=== PATIENT | female | born 2000 | race Caucasian/White ===

== ENCOUNTER 2024-02-05 17:04 | Emergency (ER) | payer OTHER, SELFPAY ==
[2024-02-05 17:20] VITALS: BP 177/91; PULSE 98; RESP 20; TEMP 37.2; O2SAT 97; BMI 72.8
--- NOTE | 2024-02-05 17:54 | XRR_ITS ---
PROCEDURE INFORMATION: Exam: XR Chest Exam date and time: 02/05/2024 6:58 PM Age: 23 years old Clinical indication: Dyspnea; Patient HX: Multiple complaints, possibly fever x 2 days, ble 3+ pitting edema, reports HX of chf but has not seen a physician for this recently. Nausea/vomiting x 4 days, vomiting 5-10 times per day. 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 Also reports cough with chest congestion TECHNIQUE: Imaging protocol: Radiologic exam of the chest. Views: 1 view. COMPARISON: No relevant prior studies available. FINDINGS: Lungs: Unremarkable. No consolidation. Pleural spaces: Unremarkable. No pleural effusion. No pneumothorax. Heart/Mediastinum: Unremarkable. No cardiomegaly. Bones/joints: Unremarkable. XR/XR chest 1V portable [id number] IMPRESSION: No acute radiographic findings.
--- NOTE | 2024-02-05 17:56 | ED_ITS ---
Documented by User: Didier Maya DO 02/06/24 05:58 HPI - General Adult 2 General: Chief complaint: Nausea/Vomiting/Diarrhea Stated complaint: Both leg swollen, n/v/d Time Seen by Provider: 02/05/24 17:26 Source: patient Mode of arrival: ambulatory History of Present Illness: 23-year-old super morbidly obese female presents emergency room complaining of swelling in her legs she is diabetic she ran out of her insulin about 2 weeks ago. She has noticed polyuria and polydipsia. Additionally she has noticed significant swelling in her legs she tells me she has a history of heart failure which she does not know the etiology for a time she was on diuretics which she stopped taking them because she said they made her incontinent. She also thinks that she may be . Onset (ago): minute(s) Associated symptoms: Reports dyspnea and malaise; Deny chest pain, confusion, cough, diaphoresis, decreased appetite, fevers/chills, headache(s), nausea, rash, palpitations, seizures, short of breath, syncope, vomiting or weakness Treatments prior to arrival: none Review of Systems 2 Const: Reports: fatigue and malaise; Denies: fever(s), chills or diaphoresis Card: Reports: edema, swelling of feet/ankles, dyspnea on exertion and orthopnea; Denies: chest pain, palpitations or syncope Resp: Reports: dyspnea GI: Denies: abdominal pain, nausea, vomiting or hematemesis : Reports: urinary frequency and urinary urgency; Denies: dysuria Musc: Denies: neck pain or back pain Skin/Breast: Denies: rash or pruritus Neuro: Denies: headache(s) or confusion [facility] ED 2 Female Reproductive History: Date of last menstrual period: 12/30/23 Physical Exam 2 Const: GENERAL APPEARANCE: cooperative and comfortable O RIENTATION/CONSCIOUSNESS: Yes awake, Yes oriented to person, Yes oriented to place and Yes oriented to time HENMT: COMMON NORMALS: normocephalic, atraumatic and hearing grossly normal bilaterally HEAD & SCALP: normocephalic and atraumatic Resp: COMMON NORMALS: normal respiratory effort, No retractions and No use of accessory muscles AUSCULTATION: diminished lung sounds Cardio: COMMON NORMALS: regular rate, regular rhythm and No murmurs present (Cardio) RATE: regular rate RHYTHM: regular rhythm Extremity: COMMON NORMALS: normal to inspection and capillary refill normal GENERAL: Yes calf tenderness and Yes edema Neuro: SENSORIUM/ORIENTATION: Yes oriented to person, Yes oriented to place and Yes oriented to time Skin: COMMON NORMALS: no rashes or lesions noted GENERAL SKIN EXAM: no rashes or lesions noted Course 2 Vital Signs: Vital signs: Vital Signs Temperature 98.9 F 02/05/24 17:20 Pulse Rate 101 H 02/05/24 20:30 Respiratory Rate 18 02/05/24 20:30 Blood Pressure 179/91 02/05/24 20:30 Pulse Oximetry 86 L 02/05/24 20:30 Oxygen Delivery Me thod Room Air 02/05/24 18:11 MDM - General Adult Medical Decision Making Patient has been out of insulin last several weeks significant edema. Concerned she may be in congestive heart failure she relates she has had heart failure in the past. Also concern for early DKA or hyperosmolar nonketotic state. Did not initially give her Lasix wanted to see some of her lab work back to make sure she was not in DKA first. Patient has been riding in a semitruck with her significant other who is a dry commercial appraiser. Also concerned about possibility of DVT labs and imaging ordered. Care signed out to Dr. Romero at change of shift. See final notes for diagnosis and disposition. Patient transferred over shift change, always waiting for the second troponin to come back patient decided she was ready to leave. Patient left AMA. Lab Data 02/05/24 18:10 02/05/24 18:10 Radiology Impressions Chest X-Ray 02/05/24 17:54 IMPRESSION: No acute radiographic findings. Venous Duplex 02/05/24 18:02 IMPRESSION: No sonographic evidence of deep venous thrombosis. Laboratory Results WBC 10.77 10^3/uL (3.29-11.43) 02/05/24 18:10 RBC 3.98 10^6/uL (3.85-5.65) 02/05/24 18:10 Hgb 11.40 g/dL (11.27-16.99) 02/05/24 18:10 Hct 37.5 % (36-47) 02/05/24 18:10 MCV 94.2 fl (85-98) 02/05/24 18:10 MCH 28.6 pg (27-33) 02/05/24 18:10 MCHC 30.4 g/dL (30-55) 02/05/24 18:10 RDW 15.1 % (12.1-15.1) 02/05/24 18:10 Plt Count 217 10^3/cmm (157-399) 02/05/24 18:10 MPV 10.7 fL (7.4-10.4) H 02/05/24 18:10 Neut % (Auto) 67.5 % 02/05/24 18:10 Lymph % (Auto) 23.1 % 02/05/24 18:10 Russell % (Auto) 6.4 % 02/05/24 18:10 Eos % (Auto) 2.0 % 02/05/24 18:10 Baso % (Auto) 0.5 % 02/05/24 18:10 Neut # (Auto) 7.27 10^3/uL (1.8-7.7) 02/05/24 18:10 Lymph # (Auto) 2.5 10^3/uL (0.8-4.8) 02/05/24 18:10 Russell # (Auto) 0.7 10^3/uL (0.2-0.9) 02/05/24 18:10 Eos # (Auto) 0.2 10^3/uL (0.0-0.8) 02/05/24 18:10 Baso # (Auto) 0.1 10^3/uL (0.0-0.1) 02/05/24 18:10 Nucleated RBC % (auto) 0 % 02/05/24 18:10 Nucleated RBCs # 0.0 /100WBC 02/05/24 18:10 Specimen Type Arterial 02/05/24 17:56 Sample Site Radial, right 02/05/24 17:56 ABG pH 7.43 (7.35-7.45) 02/05/24 17:56 ABG pCO2 45.6 mmHg (35-45) H 02/05/24 17:56 ABG pO2 81.2 mmHg (80.0-100.0) 02/05/24 17:56 ABG PO2/FiO2 Ratio 0 02/05/24 17:56 ABG HCO3 29.9 mmol/L (22-26) H 02/05/24 17:56 ABG O2 Saturation 97.5 02/05/24 17:56 ABG Base Excess 4.8 mmol/L (-2.0-2.0) H 02/05/24 17:56 Clement Test Pos 02/05/24 17:56 A-a O2 Gradient 1.4 mmHg (5-10) L 02/05/24 17:56 Hematocrit 34.4 % (37-47) L 02/05/24 17:56 Hgb O2 Saturation 93.8 % (95-100) L 02/05/24 17:56 Carboxyhemoglobin 3.8 %THgb (0.4-20.1) 02/05/24 17:56 Methemoglobin 0.0 % (0.4-1.5) L 02/05/24 17:56 Total Hemoglobin 11.2 g/dL (12-16) L 02/05/24 17:56 Sodium 140.0 mmol/L (131-143) 02/05/24 17:56 Potassium 4.1 mmol/L (3.5-5.0) 02/05/24 17:56 Glucose 110.0 mg/dL (70-115) 02/05/24 17:56 Ionized Calcium 1.3 mmol/L (1.1-1.4) 02/05/24 17:56 O2 Delivery Device Room air 02/05/24 17:56 FiO2 21.0 % 02/05/24 17:56 Gelatin Plant Supervisor ID Debi 02/05/24 17:56 Sodium 145 mmol/L (136-145) 02/05/24 18:10 Potassium 4.3 mmol/L (3.5-5.1) 02/05/24 18:10 Chloride 107 mmol/L (98-107) 02/05/24 18:10 Carbon Dioxide 30 mmol/L (22-29) H 02/05/24 18:10 Anion Gap 12.3 (5-19) 02/05/24 18:10 BUN 13 mg/dL (6-20) 02/05/24 18:10 Creatinine 0.5 mg/dL (0.5-0.9) 02/05/24 18:10 GFR Calculation 150.3 mL/min (90-130) H 02/05/24 18:10 Glucose 124 mg/dL (65-115) H 02/05/24 18:10 Calculated Osmolality 302 mOsm/kg (285-295) H 02/05/24 18:10 Calcium 9.3 mg/dL (8.5-10.5) 02/05/24 18:10 Total Bilirubin 0.2 mg/dL (0.15-1.2) 02/05/24 18:10 AST 14 U/L (0-32) 02/05/24 18:10 ALT 20 U/L (0-33) 02/05/24 18:10 Alkaline Phosphatase 67 U/L (35-105) 02/05/24 18:10 Troponin T Baseline 7 ng/L (0-10) 02/05/24 18:10 Troponin T 120 Minute 6.43 ng/L (0-10) 02/05/24 20:09 Delta Troponin T -0.57 ABS# (0-10) L 02/05/24 20:09 NT-Pro-B Natriuret Pep 78 pg/mL (0-125) 02/05/24 18:10 Total Protein 6.5 g/dL (6.6-8.7) L 02/05/24 18:10 Albumin 3.8 g/dL (3.5-5.2) 02/05/24 18:10 Globulin 2.7 g/dL (1.3-4.6) 02/05/24 18:10 Lipase 14 U/L (13-60) 02/05/24 18:10 HCG, Qual Negative (Negative) 02/05/24 18:10 Urine Color Yellow (Yellow) 02/05/24 17:58 Urine Appearance Clear (CLEAR) 02/05/24 17:58 Urine pH 6 (5-7) 02/05/24 17:58 Ur Specific [place] 1.025 (1.005-1.030) 02/05/24 17:58 Urine Protein Neg (Negative) 02/05/24 17:58 Urine Glucose (UA) Norm (Normal) 02/05/24 17:58 Urine Ketones Negative (Negative) 02/05/24 17:58 Urine Blood Neg (Negative) 02/05/24 17:58 Urine Nitrate Negative (Negative) 02/05/24 17:58 Urine Bilirubin Neg (Negative) 02/05/24 17:58 Urine Urobilinogen Norm mg/dL (Negative) 02/05/24 17:58 Ur Leukocyte Esterase Negative (Negative) 02/05/24 17:58 Serum Ketones Negative (Negative) 02/05/24 18:10 Discharge Plan Discharge Patient Disposition: Left Against Medical Advice Clinical Impression: Left against medical advice Condition: Stable Patient Instructions: Against Medical Advice (ED) Activity Restrictions/Additional Instructions: Thank you for choosing [facility] for your healthcare needs today. Please realize that you were seen in the emergency department and that we are providing you with an emergency medical screening exam and this may not be a complete and all exclusive of all testing and/or medical workup we may need to determine your element or severity of your illness. It is very important that you follow-up as instructed with your primary care provider or specialist for the additional evaluation and to discuss your medical treatment plan. You may return to the emergency department should you have concerns or if your condition changes or worsens in any way. Coding Level of Care Code ED Flue Gas Analyst for Chg Fwd Documented by User: Xiang Romero DO 02/06/24 03:12 HPI - General Adult 2 General: Chief complaint: Nausea/Vomiting/Diarrhea Stated complaint: Both leg swollen, n/v/d Time Seen by Provider: 02/05/24 17:26 Course 2 Vital Signs: Vital signs: Vital Signs Temperature 98.9 F 02/05/24 17:20 Pulse Rate 101 H 02/05/24 20:30 Respiratory Rate 18 02/05/24 20:30 Blood Pressure 179/91 02/05/24 20:30 Pulse Oximetry 86 L 02/05/24 20:30 Oxygen Delivery Me thod Room Air 02/05/24 18:11 MDM - General Adult Medical Decision Making Patient transferred over shift change, always waiting for the second troponin to come back patient decided she was ready to leave. Patient left AMA. Lab Data 02/05/24 18:10 02/05/24 18:10 Radiology Impressions Chest X-Ray 02/05/24 17:54 IMPRESSION: No acute radiographic findings. Venous Duplex 02/05/24 18:02 IMPRESSION: No sonographic evidence of deep venous thrombosis. Laboratory Results WBC 10.77 10^3/uL (3.29-11.43) 02/05/24 18:10 RBC 3.98 10^6/uL (3.85-5.65) 02/05/24 18:10 Hgb 11.40 g/dL (11.27-16.99) 02/05/24 18:10 Hct 37.5 % (36-47) 02/05/24 18:10 MCV 94.2 fl (85-98) 02/05/24 18:10 MCH 28.6 pg (27-33) 02/05/24 18:10 MCHC 30.4 g/dL (30-55) 02/05/24 18:10 RDW 15.1 % (12.1-15.1) 02/05/24 18:10 Plt Count 217 10^3/cmm (157-399) 02/05/24 18:10 MPV 10.7 fL (7.4-10.4) H 02/05/24 18:10 Neut % (Auto) 67.5 % 02/05/24 18:10 Lymph % (Auto) 23.1 % 02/05/24 18:10 Russell % (Auto) 6.4 % 02/05/24 18:10 Eos % (Auto) 2.0 % 02/05/24 18:10 Baso % (Auto) 0.5 % 02/05/24 18:10 Neut # (Auto) 7.27 10^3/uL (1.8-7.7) 02/05/24 18:10 Lymph # (Auto) 2.5 10^3/uL (0.8-4.8) 02/05/24 18:10 Russell # (Auto) 0.7 10^3/uL (0.2-0.9) 02/05/24 18:10 Eos # (Auto) 0.2 10^3/uL (0.0-0.8) 02/05/24 18:10 Baso # (Auto) 0.1 10^3/uL (0.0-0.1) 02/05/24 18:10 Nucleated RBC % (auto) 0 % 02/05/24 18:10 Nucleated RBCs # 0.0 /100WBC 02/05/24 18:10 Specimen Type Arterial 02/05/24 17:56 Sample Site Radial, right 02/05/24 17:56 ABG pH 7.43 (7.35-7.45) 02/05/24 17:56 ABG pCO2 45.6 mmHg (35-45) H 02/05/24 17:56 ABG pO2 81.2 mmHg (80.0-100.0) 02/05/24 17:56 ABG PO2/FiO2 Ratio 0 02/05/24 17:56 ABG HCO3 29.9 mmol/L (22-26) H 02/05/24 17:56 ABG O2 Saturation 97.5 02/05/24 17:56 ABG Base Excess 4.8 mmol/L (-2.0-2.0) H 02/05/24 17:56 Clement Test Pos 02/05/24 17:56 A-a O2 Gradient 1.4 mmHg (5-10) L 02/05/24 17:56 Hematocrit 34.4 % (37-47) L 02/05/24 17:56 Hgb O2 Saturation 93.8 % (95-100) L 02/05/24 17:56 Carboxyhemoglobin 3.8 %THgb (0.4-20.1) 02/05/24 17:56 Methemoglobin 0.0 % (0.4-1.5) L 02/05/24 17:56 Total Hemoglobin 11.2 g/dL (12-16) L 02/05/24 17:56 Sodium 140.0 mmol/L (131-143) 02/05/24 17:56 Potassium 4.1 mmol/L (3.5-5.0) 02/05/24 17:56 Glucose 110.0 mg/dL (70-115) 02/05/24 17:56 Ionized Calcium 1.3 mmol/L (1.1-1.4) 02/05/24 17:56 O2 Delivery Device Room air 02/05/24 17:56 FiO2 21.0 % 02/05/24 17:56 Gelatin Plant Supervisor ID [place] 02/05/24 17:56 Sodium 145 mmol/L (136-145) 02/05/24 18:10 Potassium 4.3 mmol/L (3.5-5.1) 02/05/24 18:10 Chloride 107 mmol/L (98-107) 02/05/24 18:10 Carbon Dioxide 30 mmol/L (22-29) H 02/05/24 18:10 Anion Gap 12.3 (5-19) 02/05/24 18:10 BUN 13 mg/dL (6-20) 02/05/24 18:10 Creatinine 0.5 mg/dL (0.5-0.9) 02/05/24 18:10 GFR Calculation 150.3 mL/min (90-130) H 02/05/24 18:10 Glucose 124 mg/dL (65-115) H 02/05/24 18:10 Calculated Osmolality 302 mOsm/kg (285-295) H 02/05/24 18:10 Calcium 9.3 mg/dL (8.5-10.5) 02/05/24 18:10 Total Bilirubin 0.2 mg/dL (0.15-1.2) 02/05/24 18:10 AST 14 U/L (0-32) 02/05/24 18:10 ALT 20 U/L (0-33) 02/05/24 18:10 Alkaline Phosphatase 67 U/L (35-105) 02/05/24 18:10 Troponin T Baseline 7 ng/L (0-10) 02/05/24 18:10 Troponin T 120 Minute 6.43 ng/L (0-10) 02/05/24 20:09 Delta Troponin T -0.57 ABS# (0-10) L 02/05/24 20:09 NT-Pro-B Natriuret Pep 78 pg/mL (0-125) 02/05/24 18:10 Total Protein 6.5 g/dL (6.6-8.7) L 02/05/24 18:10 Albumin 3.8 g/dL (3.5-5.2) 02/05/24 18:10 Globulin 2.7 g/dL (1.3-4.6) 02/05/24 18:10 Lipase 14 U/L (13-60) 02/05/24 18:10 HCG, Qual Negative (Negative) 02/05/24 18:10 Urine Color Yellow (Yellow) 02/05/24 17:58 Urine Appearance Clear (CLEAR) 02/05/24 17:58 Urine pH 6 (5-7) 02/05/24 17:58 Ur Specific [place] 1.025 (1.005-1.030) 02/05/24 17:58 Urine Protein Neg (Negative) 02/05/24 17:58 Urine Glucose (UA) Norm (Normal) 02/05/24 17:58 Urine Ketones Negative (Negative) 02/05/24 17:58 Urine Blood Neg (Negative) 02/05/24 17:58 Urine Nitrate Negative (Negative) 02/05/24 17:58 Urine Bilirubin Neg (Negative) 02/05/24 17:58 Urine Urobilinogen Norm mg/dL (Negative) 02/05/24 17:58 Ur Leukocyte Esterase Negative (Negative) 02/05/24 17:58 Serum Ketones Negative (Negative) 02/05/24 18:10 All radiology interpretation(s) finalized by discharge Discharge Plan Discharge Patient Disposition: Left Against Medical Advice Clinical Impression: Left against medical advice Condition: Stable Patient Instructions: Against Medical Advice (ED) Activity Restrictions/Additional Instructions: Thank you for choosing [facility] for your healthcare needs today. Please realize that you were seen in the emergency department and that we are providing you with an emergency medical screening exam and this may not be a complete and all exclusive of all testing and/or medical workup we may need to determine your element or severity of your illness. It is very important that you follow-up as instructed with your primary care provider or specialist for the additional evaluation and to discuss your medical treatment plan. You may return to the emergency department should you have concerns or if your condition changes or worsens in any way. Coding Level of Care Code ED Flue Gas Analyst for Catrachita Clark
--- NOTE | 2024-02-05 18:02 | USR_ITS ---
PROCEDURE INFORMATION: Exam: US Duplex Lower Extremity Veins, Bilateral Exam date and time: 02/05/2024 6:24 PM Age: 23 years old Clinical indication: Edema, localized; Lower extremity, bilateral; Patient HX: Morbid obesity 5ft 8 inches, 479lbs. C/O chronic ble edema. ; Additional info: Pain swelling TECHNIQUE: Imaging protocol: Real-time duplex ultrasound of the bilateral extremities with 2-D travis scale, color Doppler flow and spectral waveform analysis including responses to compression and other maneuvers (when performed) with image documentation. Complete exam focused on the lower extremity veins. COMPARISON: No relevant prior studies available. FINDINGS: Right deep veins: Unremarkable. The common femoral, femoral, proximal profunda femoral, popliteal and posterior tibial veins are patent without thrombus. Normal Doppler waveforms. Normal compressibility and/or augmentation response. Left deep veins: Unremarkable. The common femoral, femoral, proximal profunda femoral, popliteal and posterior tibial veins are patent without thrombus. Normal Doppler waveforms. Normal compressibility and/or augmentation response. Superficial veins: Greater saphenous veins at the saphenofemoral junctions are patent bilaterally without thrombus. Soft tissues: Unremarkable. US/[place] [id number] IMPRESSION: No sonographic evidence of deep venous thrombosis.
[2024-02-05 18:08] LABS: ABG PCO2 45.6 mmHg (35-45); ABG PH Result 7.43 (7.35-7.45); Alveolar-Arterial Oxygen Gradi 1.4 mmHg (5-10); Arterial Blood Gas Hematocrit 34.4 % (37-47); Base Excess ABG 4.8 mmol/L (-2.0-2.0); Blood Gas Allen Test Pos; Blood Gas Operator Identificat WALCI; Blood Gas Sample Site Radial, right; Blood Gas Sample Type Arterial; Carboxyhemoglobin 3.8 %THgb (0.4-20.1); HCO3 ABG 29.9 mmol/L (22-26); HGB O2 Sat 93.8 % (95-100); Ionized Calcium Level - ABG 1.3 mmol/L (1.1-1.4); Oxygen Device ROOM AIR; Oxygen Saturation ABG 97.5; PO2 ABG 81.2 mmHg (80.0-100.0); PO2 FiO2 Ratio Arterial Blood 0; Potassium Level - ABG 4.1 mmol/L (3.5-5.0); Total Hemoglobin 11.2 g/dL (12-16)
[2024-02-05 18:11] VITALS: BP 175/85; PULSE 98; RESP 18; O2SAT 98
--- NOTE | 2024-02-05 18:21 | ECG_ITS ---
[facility] Test Date: 2024-02-05 Pat Name: Rosemary Stewart Department: Room: Gender: Female Manager [employer]: : 2000 Requested By: Didier Forrester Order Number: [id number] Ashlyn MD: Mario De Guzman M.D. Measurements Intervals [place] Rate: 108 P: 58 OK: 116 QRS: 38 QRSD: 93 T: 46 QT: 326 QTc: 438 Interpretive Statements SINUS TACHYCARDIA WITH SHORT OK INTERVAL INDETERMINATE AXIS PATTERN CONSISTENT WITH PULMONARY DISEASE No previous ECG available for comparison Electronically Signed On 02-06-2024 17:03:07 CDT by Mario De Guzman M.D. [id number]
[2024-02-05 18:28] LABS: Basophils # 0.1 10^3/uL (0.0-0.1); Basophils % 0.5 %; Eosinophils # 0.2 10^3/uL (0.0-0.8); Hematocrit 37.5 % (36-47); Lymphocytes # 2.5 10^3/uL (0.8-4.8); Lymphocytes % 23.1 %; Mean Corpuscular HGB Conc 30.4 g/dL (30-55); Mean Corpuscular Hemoglobin 28.6 pg (27-33); Mean Corpuscular Volume 94.2 fl (85-98); Mean Platelet Volume 10.7 fL (7.4-10.4); Monocytes # 0.7 10^3/uL (0.2-0.9); Monocytes % 6.4 %; Neutrophils # 7.27 10^3/uL (1.8-7.7); Neutrophils % 67.5 %; Nucleated Red Blood Cells % 0 %; Platelet Count 217 10^3/cmm (157-399); Red Blood Count 3.98 10^6/uL (3.85-5.65); Red Cell Distribution Width 15.1 % (12.1-15.1); White Blood Count 10.77 10^3/uL (3.29-11.43)
[2024-02-05 18:28] LABS: Add Urine Microscopic? NO; Charge for UA Resulting for Rev
[2024-02-05 18:46] LABS: Bilirubin Urine Neg (Negative); Blood Urine Neg (Negative); Glucose Urine UA Norm (Normal); Ketones Urine Negative (Negative); Leukocyte Esterase Urine Negative (Negative); Nitrate Urine Negative (Negative); Protein Urine Neg (Negative); Specific Gravity, Urine 1.025 (1.005-1.030); Urine Appearance Clear (CLEAR); Urine Color Yellow (Yellow); Urobilinogen Urine Norm (Negative); pH Urine 6 (5-7)
[2024-02-05 18:48] LABS: HCG, Serum Qual Negative (Negative); Ketone (Acetest) Serum Negative (Negative); Troponin(5th) Baseline 7 ng/L (0-10)
[2024-02-05 19:07] LABS: Alanine Aminotransferase 20 U/L (0-33); Albumin Level 3.8 g/dL (3.5-5.2); Alkaline Phosphatase 67 U/L (35-105); Anion Gap 12.3 (5-19); Aspartate Amino Transferase 14 U/L (0-32); Blood Urea Nitrogen 13 mg/dL (6-20); Calcium 9.3 mg/dL (8.5-10.5); Carbon Dioxide 30 mmol/L (22-29); Chloride 107 mmol/L (98-107); Creatinine Clr Calc Pharmacy 340.0842; Globulin 2.7 g/dL (1.3-4.6); Glomerular Filtration Rate 150.3 mL/min (90-130); Glucose 124 mg/dL (65-115); Lipase 14 U/L (13-60); NT Pro B Type Natriuretic Pept 78 pg/mL (0-125); Osmolality Calculated 302 mOsm/kg (285-295); Potassium 4.3 mmol/L (3.5-5.1); Sodium 145 mmol/L (136-145); Total Bilirubin 0.2 mg/dL (0.15-1.2); Total Protein 6.5 g/dL (6.6-8.7)
[2024-02-05 20:30] VITALS: BP 179/91; PULSE 101; RESP 18; O2SAT 86
[2024-02-05 20:30] LABS: Troponin 5 2HR 6.43 ng/L (0-10)
--- NOTE | 2024-02-05 20:30 | PC.NURSE ---
PATIENT LEFT AMA. PATIENT STATES THAT SHE DOES NOT WANT TO WAIT FOR 2ND LAB DRAW RESULTS. 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 PROVIDER NOTIFIED. PROVIDER VERBALIZED FINE WITH DECISION.
[2024-02-05 20:32] LABS: Troponin 5 2HR Delta -0.57 ABS# (0-10)
== END 2024-02-05 20:30 | disposition left against medical advice (07) ==
PROVIDERS: Emergency Provider Family Medicine
DX: M79.89 Other specified soft tissue disorders (principal); Z53.29 Procedure and treatment not carried out because of patient's decision for other reasons; E11.9 Type 2 diabetes mellitus without complications; Z79.4 Long term (current) use of insulin
CPT/HCPCS: 36415; 36600; 71045; 80051; 80053; 81003; 82009; 82330; 82805; 83690; 83880; 84484; 84703; 85025; 93005; 93970; 99285